=== PATIENT | female | born 1965 | race Caucasian/White ===

== ENCOUNTER → 2016-09-05 | Outpatient (CLI) | payer OTHER ==
--- NOTE | 2016-09-06 17:00 | BD ---
EXAMINATION TYPE: MG DEXA axial skeleton. DATE OF EXAM: 09/05/2016 COMPARISON: NONE CLINICAL HISTORY: 51-year-old female asymptomatic postmenopausal status. Height: 62 IN Weight: 193 LBS FRAX RISK QUESTIONS: Alcohol (3 or more units per day): NO Family History (Parent hip fracture): NO Glucocorticoids (More than 3mos): NO (Ex: prednisone, prednisolone, methylprednisolone, dexamethasone, and hydrocortisone). History of Fracture in Adulthood: NO Secondary Osteoporosis: 1. Type 1 Diabetes: NO 2. Hyperthyroidism: NO 3. Menopause before 45: NO 4. Malnutrition: NO 5. Chronic liver disease: NO Rheumatoid Arthritis: NO Current Tobacco Use: NO RISK FACTORS HISTORY OF: Active: YES Postmenopausal woman: NO If Premenopausal, do you have irregular periods: YES LAST ONE 04/01 Take estrogen and/or progesterone medications: NOT NOW How long: TOOK HORMONES FOR 1 MONTH AGE 29 MEDICATIONS: Additional Medications: VIT D, IRON, OMEPRAZOLE EXAM MEASUREMENTS: Bone mineral densitometry was performed using the [employer] Software System. Bone mineral density as measured about the Lumbar spine is: ----- L1-L4(G/cm2): 1.302 T Score Values are as follows: ----- L2: 0.2 ----- L3: 2.0 ----- L4: 1.1 ----- L1-L4: 1.0 Bone mineral density BASELINE Bone mineral density about the R hip (g/cm2): 1.022 Bone mineral density about the L hip (g/cm2): 0.987 T Score values are as follows: -----R Neck: -0.1 -----L Neck: -0.4 -----R Total: 0.8 -----L Total: 1.1 Bone mineral density BASELINE IMPRESSION: Normal (Values between +1 and -1 indicate normal bone mass). Consider repeating this study in 5 year s or sooner if there is some new clinical indication. NOTE: T-SCORE=SD OF THE YOUNG ADULT MEAN.
== END | disposition home or self-care (01) ==
LOC: RADBDWWP 15:49
PROVIDERS: ATTEND Obstetrics & Gynecology
DX: Z78.0 Asymptomatic menopausal state (principal)
CPT/HCPCS: 77080

== ENCOUNTER → 2017-08-10 | Outpatient (CLI) | payer OTHER ==
[2017-08-10 15:27] LABS: Basophils % (A) 0 %; Eosinophils # (A) 0.1 k/uL (0-0.7); Eosinophils % (A) 1 %; HCT 37.6 % (34.0-46.0); HGB 12.2 gm/dL (11.4-16.0); Lymphocytes # (A) 3.1 k/uL (1.0-4.8); Lymphocytes % (A) 27 %; MCH 27.6 pg (25.0-35.0); MCHC 32.5 g/dL (31.0-37.0); MCV 85.1 fL (80.0-100.0); Mean Platelet Volume 7.4; Monocytes # (A) 0.7 k/uL (0-1.0); Monocytes % (A) 6 %; Neutrophils # (A) 7.2 k/uL (1.3-7.7); Neutrophils % (A) 64 %; Platelet Count 358 k/uL (150-450); RBC 4.42 m/uL (3.80-5.40); RDW 15.6 % (11.5-15.5); WBC 11.2 k/uL (3.8-10.6)
== END | disposition home or self-care (01) ==
LOC: LABPAT 14:39
PROVIDERS: ATTEND Obstetrics & Gynecology
DX: Z01.812 Encounter for preprocedural laboratory examination (principal); N88.2 Stricture and stenosis of cervix uteri; N95.0 Postmenopausal bleeding; N84.0 Polyp of corpus uteri
CPT/HCPCS: 36415; 85025

== ENCOUNTER 2017-08-15 05:42 | Day surgery (SDC) | payer OTHER ==
[2017-08-08 14:51] VITALS: BMI 35.5
[~2017-08-15 05:42] MED LIST: DEXAMETHASONE SOD PHOSPHATE 10 MG/ML 1 ML VIAL IV ONE; LACTATED RINGERS 1,000 ML IV SCH; LIDOCAINE 1% 20 ML VIAL (10MG/ML) FOR IV START INTRADERMA PRN; ONDANSETRON 4 MG/2 ML VIAL IVP ONE; Pre Op ABX Message 1 EACH MISC MISCELLANE ONE; SCOPOLAMINE 1.5MG/72HR PATCH TRANSDERM ONE; fentaNYL (PF) 50 MCG/ML 2 ML AMP IV PRN
[2017-08-15] MEDS ORDERED: PROPOFOL 10 MG/ML 20 ML VIAL IV ONE (07:00)
[2017-08-15] MEDS ORDERED: fentaNYL (PF) 50 MCG/ML 2 ML AMP ONE (07:00)
[2017-08-15] MEDS ORDERED: KETOROLAC 30 MG/ML 1 ML VIAL ONE (07:00)
[2017-08-15] MEDS ORDERED: LIDOCAINE 1% INJ 10MG/ML (20 ML MDV) ONE (07:00)
[2017-08-15] MEDS ORDERED: SUCCINYLCHOLINE CHLORIDE 100 MG/5 ML SYR IV ONE (07:00)
[2017-08-15] MEDS ORDERED: MIDAZOLAM 2 MG/2 ML VIAL ONE (07:00)
[2017-08-15] MEDS ORDERED: SILVER NITRATE APPLICATOR 1 EACH STICK..EA. TOPICAL ONE ×2 (07:23)
--- NOTE | 2017-08-15 07:29 | P.OP ---
Date of Procedure: 08/15/17 Preoperative Diagnosis: Postmenopausal bleeding, endometrial polyps, cervical stenosis Postoperative Diagnosis: Same, pathology pending Procedure(s) Performed: Hysteroscopy, D&C Anesthesia: TANA Surgeon: Heather Degroot Continuous Towel Roller #1: Stated None Estimated Blood Loss (ml): 20 IV fluids (ml): 300 Urine output (ml): 50 Pathology: other (Endometrial curettings and polyps) Condition: stable Disposition: PACU Description of Procedure: Patient is brought to the operating suite and a general anesthetic is administered without difficulty. She's placed in the dorsal lithotomy position. The appropriate timeout is performed to assure proper patient and procedural identification. Antibiotics are not deemed necessary, urine hCG is negative. The cervix, vagina, perineal body and lower abdomen are all prepped and draped in usual sterile fashion. Examination under anesthesia reveals a small anteverted mobile uterus, negative adnexa bilaterally. The bladder is drained for 50 mL of clear yellow urine. The weighted speculum was placed into the vagina and Trendelenburg position is given. The anterior lip of the cervix is grasped with a double-tooth tenaculum after a weighted speculum was placed. The uterus sounds to a depth of 8.5 cm in the anteverted position. The anterior lip of the cervix is grasped with a double- tooth tenaculum. The cervix is gently and systematically dilated using Hanks dilators. Hysteroscope was placed and the cavity is distended with sterile saline. A moderate amount of shaggy-appearing tissue was noted, suspicious for small polyps as well. Hysteroscope was removed. A sharp medium curette is used and the cavity is thoroughly curettaged for a moderate amount of tissue. Polyp forceps are used and the cavity is judged to be completely evacuated. Hysteroscope was once again placed the cavity is distended and inspected, it appears to be clear of all tissue. The anterior lip of the cervix is slightly bleeding from the tenaculum perforations, this is nicely controlled with nitrous stick's. All sponge needle and enhancement counts are correct at the end of the procedure. Patient is brought back to the recovery room in very good condition with stable vital signs including blood pressure 147/86, pulse 108. Toradol is given prior to leaving the operative suite. Patient will follow-up with the office in 2 weeks.
[2017-08-15 07:55] VITALS: TEMP 96.9
[2017-08-15 08:02] VITALS: RESP 16
[2017-08-15 09:10] VITALS: BP 102/71; PULSE 85
== END 2017-08-15 09:47 | disposition home or self-care (01) ==
LOC: OR 05:42
PROVIDERS: ATTEND Obstetrics & Gynecology
DX: N84.0 Polyp of corpus uteri (principal); N88.2 Stricture and stenosis of cervix uteri; I10 Essential (primary) hypertension; D64.9 Anemia, unspecified; K21.9 Gastro-esophageal reflux disease without esophagitis; Z79.899 Other long term (current) drug therapy; Z88.5 Allergy status to narcotic agent; Z88.2 Allergy status to sulfonamides; Z88.8 Allergy status to other drugs, medicaments and biological substances
CPT/HCPCS: 81025; 88305; 58558; J2250; J1100; J2405; J2001; J3010; J1885; J0330; J2704

== ENCOUNTER → 2021-03-18 | Outpatient (CLI) | payer BC ==
--- NOTE | 2021-03-19 07:48 | US ---
EXAMINATION TYPE: US transvaginal DATE OF EXAM: 03/18/2021 COMPARISON: NONE CLINICAL HISTORY: R10.2 PELVIC PAIN. Right lower pelvic pain one week ago with no current pain, G 3 P 3 TECHNIQUE: Transvaginal (TV). Date of LMP: 2-3 years ago EXAM MEASUREMENTS: Uterus: 6.3 x 3.7 x 3.2 cm Endometrial Stripe: 0.3m Right Ovary: 2.3 x 1.7 x 1.6 cm Left Ovary: 1.9 x 1.4 x 1.5 cm 1. Uterus: Anteverted Shadowing echogenic area adjacent to endometrium measuring 1.0 x 1.1 x 0.8 c m 2. Endometrium: wnl 3. Right Ovary: wnl 4. Left Ovary: wnl 5. Bilateral Adnexa: wnl 6. Posterior cul-de-sac: wnl Shadowing echogenic area adjacent to endometrium, Multiple cystic areas seen in cervix, hypoechoic ar ea seen in cervix measuring 1.1 x 1.3 x 0.9cm, IMPRESSION: 1. shadowing echogenic focus adjacent to the endometrium could reflect leiomyoma.
== END | disposition home or self-care (01) ==
LOC: RADUSWWP 15:23
PROVIDERS: ATTEND Obstetrics & Gynecology
DX: R93.89 Abnormal findings on diagnostic imaging of other specified body structures (principal)
CPT/HCPCS: 76830

== ENCOUNTER 2023-04-06 19:42 | Emergency (ER) | payer BC ==
[2023-04-06 20:11] VITALS: TEMP 98.7
--- NOTE | 2023-04-06 20:33 | ED ---
General Adult HPI - General Chief complaint: Recheck/Abnormal Lab/Rx Stated complaint: high BP heart palpitations Time Seen by Provider: 04/06/23 20:31 Source: patient Mode of arrival: ambulatory Limitations: no limitations - History of Present Illness Initial comments: 57-year-old female presenting to the ED with a chief complaint of palpitations. This has been ongoing for the past month. States that she recently had an echo and notes that she wore a Holter monitor and was supposed to follow-up with Dr. Barr today and notes that her appointment got changed to April 17. States she is still having ongoing palpitations and because this was instructed by her PCP to present to the ED for further evaluation. Denies chest pain or shortness of breath. - Related Data Home Medications Medication Instructions Recorded Confirmed Cholecalciferol [Vitamin D3] 2,000 unit PO DAILY 03/23/16 03/02/18 Ferrous Sulfate [Feosol] 325 mg PO DAILY 03/23/16 03/02/18 Olmesartan Medoxomil [Benicar] 40 mg PO DAILY 08/08/17 03/02/18 amLODIPine [Norvasc] 5 mg PO DAILY 03/02/18 03/02/18 Allergies Allergy/AdvReac Type Severity Reaction Status Date / Time codeine Allergy Hallucinati Verified 04/06/23 19:53 ons Sulfa (Sulfonamide Allergy Rash/Hives Verified 04/06/23 19:53 Antibiotics) steroids Allergy Rash/Hives Uncoded 04/06/23 19:53 Review of Systems ROS Statement: Those systems with pertinent positive or pertinent negative responses have been documented in the HPI. ROS Other: All systems not noted in ROS Statement are negative. Past Medical History Past Medical History: Diabetes Mellitus, GERD/Reflux, Hyperlipidemia, Hypertension Additional Past Medical History / Comment(s): IBS, Anemia, Elevated Liver enzymes; Hiatal Hernia; occ. palpitations; Uterine polyp, iron History of Any Multi-Drug Resistant Organisms: None Reported Past Surgical History: Tonsillectomy Additional Past Surgical History / Comment(s): LAPAROSCOPY/GIFT Past Anesthesia/Blood Transfusion Reactions: Postoperative Nausea & Vomiting (PONV) Additional Past Anesthesia/Blood Transfusion Reaction / Comment(s): STATES "I TAKE A LONG TIME TO WAKE UP" Past Psychological History: No Psychological Hx Reported Smoking Status: Never smoker Past Alcohol Use History: Rare Past Drug Use History: None Reported - Past Family History Father Family Medical History: Cancer Additional Family Medical History / Comment(s): CARCINOID TUMOR Mother Family Medical History: Cancer Additional Family Medical History / Comment(s): LEUKEMIA General Exam - General Exam Comments Initial Comments: Visual Physical Exam Vital signs reviewed General: Well-appearing, nontoxic, no acute distress. Head: Normocephalic, atraumatic Eyes: PERRLA, EOMI ENT: Airway patent Chest: Nonlabored breathing Skin: No visual rash, normal skin tone Neuro: Alert and oriented 3 Musculoskeletal: No gross abnormalities Limitations: no limitations General appearance: alert, in no apparent distress Eye exam: Present: normal appearance Neck exam: Present: normal inspection Respiratory exam: Present: normal lung sounds bilaterally Cardiovascular Exam: Present: normal rhythm, tachycardia GI/Abdominal exam: Present: soft Neurological exam: Present: alert, oriented X3 Skin exam: Present: warm, dry Course Vital Signs 04/06/23 19:53 Temperature 98.7 F Pulse Rate 116 H Respiratory 17 Rate Blood Pressure 159/103 O2 Sat by Pulse 98 Oximetry Medical Decision Making - Medical Decision Making Was pt. sent in by a medical professional or institution (, PA, [employer]ECT, urgent care, hospital, or residential...) When possible be specific @ -No Did you speak to anyone other than the patient for history (EMS, parent, family, police, friend...)? What history was obtained from this source @ -No Did you review nursing and triage notes (agree or disagree)? Why? @ -I reviewed and agree with nursing and triage notes Were old charts reviewed (outside hosp., previous admission, EMS record, old EKG, old radiological studies, urgent care reports/EKG's, residential records)? Report findings @ -No old charts were reviewed Differential Diagnosis (chest pain, altered mental status, abdominal pain women, abdominal pain men, vaginal bleeding, weakness, fever, dyspnea, syncope, headache, dizziness, GI bleed, back pain, seizure, CVA, palpatations, mental health, musculoskeletal)? @ -Differential Chest Pain: Stable Angina, Unstable Angina, STEMI, NSTEMI Aortic Dissection, Pneumothorax, Musculoskeletal, Esophageal Spasm GERD, Cholecystitis, Pancreatitis, Zoster, this is not meant to be an all-inclusive list. EKG interpreted by me (3pts min.). @ -EKG shows a sinus rhythm at 112 bpm with no acute ST or T wave changes. MD 140, QRS 84, QT/QTc 327/394. X-rays interpreted by me (1pt min.). @ -None done CT interpreted by me (1pt min.). @ -None done U/S interpreted by me (1pt. min.). @ -None done What testing was considered but not performed or refused? (CT, X-rays, U/S, labs)? Why? @ -None What meds were considered but not given or refused? Why? @ -None Did you discuss the management of the patient with other professionals (professionals i.e. DrCarol Ann, PA, [employer], lab, RT, psych nurse, social media analyst, supervisor cigarette making department, teacher, traffic control officer, director case management)? Give summary @ -No Was smoking cessation discussed for >3mins.? @ -No Was critical care preformed (if so, how long)? @ -No Were there social determinants of health that impacted care today? How? (Homelessness, low income, unemployed, alcoholism, drug addiction, transportation, low edu. Level, literacy, decrease access to med. care, correction, rehab)? @ -No Was there de-escalation of care discussed even if they declined (Discuss DNR or withdrawal of care, Hospice)? DNR status @ -No What co-morbidities impacted this encounter? (DM, HTN, Smoking, COPD, CAD, Cancer, CVA, ARF, Chemo, Hep., AIDS, mental health diagnosis, sleep apnea, morbid obesity)? @ -None Was patient admitted / discharged? Hospital course, mention meds given and route, prescriptions, significant lab abnormalities, going to OR and other pertinent info. @ -Discharge 57-year-old female with ongoing palpitations for the past months who recently had echo and for Holter monitor, follows with Dr. Barr, presenting to the ED with a chief complaint of continued palpitations. At this time no chest pain shortness of breath. Laboratory studies reviewed and all largely unremarkable, including troponin. At this time vital signs are largely stable and patient discharged home in stable condition. Discussed return precautions with patient who verbalized agreement. Advise follow-up with cardiology as scheduled. Undiagnosed new problem with uncertain prognosis? @ -No Drug Therapy requiring intensive monitoring for toxicity (Heparin, Nitro, Insulin, Cardizem)? @ -No Were any procedures done? @ -No Diagnosis/symptom? @ -Palpitations Acute, or Chronic, or Acute on Chronic? @ -Acute Uncomplicated (without systemic symptoms) or Complicated (systemic symptoms)? @ -Uncomplicated Side effects of treatment? @ -No Exacerbation, Progression, or Severe Exacerbation? @ -No Poses a threat to life or bodily function? How? (Chest pain, USA, NM, pneumonia, PE, COPD, DKA, ARF, appy, cholecystitis, CVA, Diverticulitis, Homicidal, Suicidal, threat to staff... and all critical care pts) @ -No - Lab Data Result diagrams: 04/06/23 20:09 04/06/23 20:09 Lab Results 04/06/23 04/06/23 04/06/23 Range/Units 20:09 20:09 20:09 WBC 13.1 H (3.8-10.6) k/uL RBC 4.42 (3.80-5.40) m/uL Hgb 12.2 (11.4-16.0) gm/dL Hct 37.0 (34.0-46.0) % MCV 83.7 (80.0-100.0) fL MCH 27.7 (25.0-35.0) pg MCHC 33.1 (31.0-37.0) g/dL RDW 15.4 (11.5-15.5) % Plt Count 357 (150-450) k/uL MPV 8.3 Neutrophils % 62 % Lymphocytes % 31 % Monocytes % 4 % Eosinophils % 1 % Basophils % 0 % Neutrophils # 8.2 H (1.3-7.7) k/uL Lymphocytes # 4.1 (1.0-4.8) k/uL Monocytes # 0.6 (0-1.0) k/uL Eosinophils # 0.1 (0-0.7) k/uL Basophils # 0.0 (0-0.2) k/uL PT 10.3 (10.0-12.5) sec INR 0.9 (<1.2) APTT 25.7 (22.0-30.0) sec Sodium 141 (137-145) mmol/L Potassium 3.9 (3.5-5.1) mmol/L Chloride 107 (98-107) mmol/L Carbon Dioxide 27 (22-30) mmol/L Anion Gap 7 mmol/L BUN 16 (7-17) mg/dL Creatinine 0.72 (0.52-1.04) mg/dL Est GFR (CKD-EPI)AfAm >90 (>60 ml/min/1.73 sqM) Est GFR (CKD-EPI)NonAf >90 (>60 ml/min/1.73 sqM) Glucose 110 H (74-99) mg/dL Calcium 9.4 (8.4-10.2) mg/dL Total Bilirubin 0.7 (0.2-1.3) mg/dL AST 30 (14-36) U/L ALT 43 H (4-34) U/L Alkaline Phosphatase 87 (38-126) U/L Troponin I (0.000-0.034) ng/mL Total Protein 7.4 (6.3-8.2) g/dL Albumin 4.4 (3.5-5.0) g/dL 04/06/23 Range/Units 20:09 WBC (3.8-10.6) k/uL RBC (3.80-5.40) m/uL Hgb (11.4-16.0) gm/dL Hct (34.0-46.0) % MCV (80.0-100.0) fL MCH (25.0-35.0) pg MCHC (31.0-37.0) g/dL RDW (11.5-15.5) % Plt Count (150-450) k/uL MPV Neutrophils % % Lymphocytes % % Monocytes % % Eosinophils % % Basophils % % Neutrophils # (1.3-7.7) k/uL Lymphocytes # (1.0-4.8) k/uL Monocytes # (0-1.0) k/uL Eosinophils # (0-0.7) k/uL Basophils # (0-0.2) k/uL PT (10.0-12.5) sec INR (<1.2) APTT (22.0-30.0) sec Sodium (137-145) mmol/L Potassium (3.5-5.1) mmol/L Chloride (98-107) mmol/L Carbon Dioxide (22-30) mmol/L Anion Gap mmol/L BUN (7-17) mg/dL Creatinine (0.52-1.04) mg/dL Est GFR (CKD-EPI)AfAm (>60 ml/min/1.73 sqM) Est GFR (CKD-EPI)NonAf (>60 ml/min/1.73 sqM) Glucose (74-99) mg/dL Calcium (8.4-10.2) mg/dL Total Bilirubin (0.2-1.3) mg/dL AST (14-36) U/L ALT (4-34) U/L Alkaline Phosphatase (38-126) U/L Troponin I <0.012 (0.000-0.034) ng/mL Total Protein (6.3-8.2) g/dL Albumin (3.5-5.0) g/dL Disposition Clinical Impression: Palpitations Disposition: HOME SELF-CARE Condition: Good Instructions (If sedation given, give patient instructions): Heart Palpitations (ED) Additional Instructions: Please return to the Emergency Department if symptoms worsen or any other concerns. Please follow-up with your PCP and/your cardiology. Is patient prescribed a controlled substance at d/c from ED?: No Referrals: Reagan Reed DO [Primary Care Provider] - 1-2 days Time of Disposition: 23:09
[2023-04-06 20:38] LABS: Basophils % (A) 0 %; Eosinophils # (A) 0.1 k/uL (0-0.7); Eosinophils % (A) 1 %; HGB 12.2 gm/dL (11.4-16.0); Lymphocytes # (A) 4.1 k/uL (1.0-4.8); Lymphocytes % (A) 31 %; MCH 27.7 pg (25.0-35.0); MCHC 33.1 g/dL (31.0-37.0); MCV 83.7 fL (80.0-100.0); Mean Platelet Volume 8.3; Monocytes # (A) 0.6 k/uL (0-1.0); Monocytes % (A) 4 %; Neutrophils # (A) 8.2 k/uL (1.3-7.7); Neutrophils % (A) 62 %; Platelet Count 357 k/uL (150-450); RBC 4.42 m/uL (3.80-5.40); RDW 15.4 % (11.5-15.5); WBC 13.1 k/uL (3.8-10.6)
[2023-04-06 20:47] LABS: INR 0.9 (<1.2); Prothrombin Time 10.3 sec (10.0-12.5)
[2023-04-06 20:48] LABS: Partial Thromboplastin Time 25.7 sec (22.0-30.0)
[2023-04-06 21:04] LABS: ALT 43 U/L (4-34); AST 30 U/L (14-36); African American GFR (CKD) >90 (>60 ml/min/1.73 sqM); Albumin 4.4 g/dL (3.5-5.0); Alkaline Phosphatase 87 U/L (38-126); Anion Gap 7 mmol/L; Blood Urea Nitrogen 16 mg/dL (7-17); Calcium 9.4 mg/dL (8.4-10.2); Carbon Dioxide 27 mmol/L (22-30); Chloride 107 mmol/L (98-107); Glucose 110 mg/dL (74-99); Non-African American GFR(CKD) >90 (>60 ml/min/1.73 sqM); Potassium 3.9 mmol/L (3.5-5.1); Sodium 141 mmol/L (137-145); Total Bilirubin 0.7 mg/dL (0.2-1.3); Total Protein 7.4 g/dL (6.3-8.2)
[2023-04-07] VITALS: BP 180/80; PULSE 78; RESP 18
== END 2023-04-06 23:20 | disposition home or self-care (01) ==
LOC: EC 19:42
DX: R00.2 Palpitations (principal); I10 Essential (primary) hypertension; E11.9 Type 2 diabetes mellitus without complications; K21.9 Gastro-esophageal reflux disease without esophagitis; E78.5 Hyperlipidemia, unspecified; Z79.899 Other long term (current) drug therapy; Z88.5 Allergy status to narcotic agent; Z88.2 Allergy status to sulfonamides; Z88.8 Allergy status to other drugs, medicaments and biological substances
CPT/HCPCS: 36415; 80053; 84484; 85025; 85610; 85730; 93005; 99285